=== PATIENT | male | born 1960 | race Caucasian/White ===

== ENCOUNTER 2020-03-30 10:00 | Outpatient (RCR) | payer OTHER, SELFPAY ==
--- NOTE | 2020-03-24 09:43 | STOPEVAL ---
OUTPATIENT SPEECH THERAPY INITIAL EVALUATION: Thank you for referring Carlitos Chery to [facility]. Skilled Speech Therapy is recommended in order to educate and train pt on compensatory strategies to improve overall speech intelligibility. Please review, sign, date and return this plan of care PHIL. I agree with and certify that the following plan of care is medically necessary. Referring Physician Date Attending Provider: Tara Luna, *ST Outpatient Evaluation Start: 03/22/20 11:21 Freq: Status: Active Protocol: Document 03/22/20 11:15 BECHERERT (Rec: 03/22/20 11:55 BECHERERT [id number]) Therapy Assessment Status Assessment Status Assessment Status Evaluation Outpatient Past Medical History Past Medical History Source of Past Medical History Patient Neurological History Hx Cerebrovascular Accident (CVA) Yes Endocrine History Hx Diabetes Yes: on metformin Psychosocial History Hx Depression Yes Evaluation Information Problem Diagnosis dysarthria Onset last stroke approximately 2 years ago Additional Evaluation Detail pt's family is reporting that his speech is worsening Previous Treatments Previous Treatments For This Problem ST after CVA Prior Level of Function Activity Level (Last 3 Months) Occupation disabled Hand Dominance Right Functional Cognition (Planning, Shopping Needs Some Help , Taking Medications) Cooking No Cleaning No Laundry No Shopping No Driving No Home Setting Home Type Apartment Living Situation With Relatives Support Available Hired Assistance,Local Family Support,Medical Alert System Prior Swallow Level Prior Intake Method Oral Prior Diet Regular (Level 7 Diet) Prior Liquid Consistency Thin (Level 0 Diet) Prior Cognition/Communication Prior Communication Level Mild Impairment,Dysarthria Prior Cognitive Function Able to Function Independently Comments Additional Prior Level of Function pt lives with his brother Comments Pain Assessment Timing of Pain Assessment Timing of Pain Assessment Assessment Self Report Self Report Pain Level 0 Pain Score Pain Score 0: Self Report Dysarthria Evaluation Oral-Motor Assessment Lip Structure Symmetrical Lip Protrusion Direction WNL,Range WNL,Rate WNL,Strength WNL Lip Lateralization Direction WNL,Range WNL,Rate
--- NOTE | 2020-03-30 14:46 | PCSTNOTE ---
Patient called & cancelled scheduled appointment this date due to having transportation issues and seeking HH vs OP services. ]
--- NOTE | 2020-04-27 07:39 | PCSTNOTE ---
SPEECH THERAPY DISCHARGE: Attending Provider: Tara Luna, Patient:Carlitos Chery Date of :1960 Patient has not returned for any further treatments since 03/30/2020, therefore he will be discharged at this time. Patient?s initial visit was on 03/22/2020 11:00 and he attended only 1 a total of 1 visit. POC was never initiated. Pt reported having transportation issues as the reason for not attending treatment. Thank you for referring this patient to [facility]. Please review, sign, date and return this discharge summary PHIL. I have been updated about the patient's current status and I agree with discharge from the above service at this time. Referring Physician Date
== END 2020-04-27 13:58 | disposition home or self-care (01) ==
LOC: ANHST 10:00
PROVIDERS: PCP Family Medicine; Visit Provider Family Medicine
DX: F80.1 Expressive language disorder (principal)
CPT/HCPCS: 92522

== ENCOUNTER 2024-03-14 08:56 | Emergency (ER) | payer OTHER, SELFPAY ==
[2024-03-14] VITALS (21 sets, daily range): BP systolic 132–175; BP diastolic 76–89; PULSE 57–73; RESP 12–26; TEMP 36.7; O2SAT 91–99
--- NOTE | ~2024-03-14 | CT_ITS ---
EXAMINATION: CT brain wo con DATE: 03/14/2024 10:12 INDICATION: Headache. TECHNIQUE: Computed tomography (CT) of the head was performed without intravenous contrast. The mA wa s adjusted according to patient size. Iterative reconstruction technique was employed. The dose-lengt h product was 681.00 mGy-cm. COMPARISON: Head CT 05/27/2018 FINDINGS: There is an old infarct in the right caudate nucleus. There are scattered areas of low atte nuation in the cerebral white matter. There is an old infarct in the left thalamus. There is volume l oss of right temporal lobe with ex vacuo dilatation of temporal horn of right lateral ventricle. Ther e is near complete opacification of left maxillary sinus with thickening and sclerosis of the sinus w alls, consistent with chronic sinusitis. There is mild mucosal thickening in other paranasal sinuses. The mastoid air cells are normal. The orbits are normal. IMPRESSION: 1. Old infarcts in the right caudate and left thalamus. 2. Worsened extensive nonspecific cerebral white matter disease, which likely represents chronic smal l vessel ischemic disease. 3. Chronic sinusitis. Reviewed, dictated and finalized at location A. IMPRESSION: 1. Old infarcts in the right caudate and left thalamus. 2. Worsened extensive nonspecific cerebral white matter disease, which likely r epresents chronic small vessel ischemic disease. 3. Chronic sinusitis.
--- NOTE | ~2024-03-14 | XR_ITS ---
EXAMINATION: XR chest 1V DATE: 03/14/2024 10:18 INDICATION: Chest pain. TECHNIQUE: AP view of the chest was obtained. COMPARISON: Chest radiograph dated 03/20/19 FINDINGS: The lungs remain clear with no focal airspace opacities, pulmonary edema, pleural effusion or pneumot horax. The cardiomediastinal silhouette is normal. Visualized bones and soft tissues are unremarkable . IMPRESSION: 1. No acute cardiopulmonary disease. Reviewed, dictated and finalized at location B.
--- NOTE | 2024-03-14 09:40 | ED.GENADULT ---
HPI - General Adult General Chief complaint: Unspecified Stated complaint: head pains? Time Seen by Provider: 03/14/24 09:40 Source: patient Mode of arrival: ambulatory Limitations: no limitations History of Present Illness HPI narrative: Carlitos is a 63-year-old male patient presenting to the 63-year-old male patient presenting to the emergency room today with complaints of right-sided head pain and chest pain this been coming and going over the last several weeks. Had a left-sided CVA 6 years ago any still has residual right-sided weakness. He reports he is having an aching pain to the right side of his head that comes and goes. Patient does not currently take any medications- states he had to stop taking his medications because he could not afford them and he had did choose between medications and food. Related Data Allergies Allergy/AdvReac Type Severity Reaction Status Date / Time No Known Allergies Allergy Unverified 03/14/24 09:23 Review of Systems Review of Systems: Pertinent positives per HPI. Patient denies any fever, chills, rash, headache, visual changes, dizziness, cough, runny nose, sore throat, shortness of breath, chest pain, palpitations, nausea, vomiting, diarrhea, constipation, abdominal pain, or any urinary issues. PMFSH Comments At the time of my signature, I reviewed and agree with the nursing past medical, surgical, social, and family history. There is no relevant family history pertinent to the patient complaint. Exam Narrative: General: Well-developed, well nourished, in no apparent distress Head: Normocephalic, atraumatic Eyes: Pupils equally round and reactive to light bilaterally, EOM intact, sclera and conjunctive clear, no discharge, lids normal Ears: TMs intact and clear, ear canals clear, no drainage, grossly hearing normal. Nose: Nares patent, no discharge, no inflammation, no sinus tenderness. Mouth: Oropharynx without lesions or masses, good dentition, MMM. Tongue midline, even rise and fall of uvula Neck: Supple, trachea midline, no enlargement of anterior or posterior cervical nodes, no thyroid masses or goiter palpable. Cardio: Regular rate and rhythm, s1 and s2 normal, no murmur appreciated. Resp: Clear to auscultation bilaterally anteriorly and posteriorly, no rhonchi, rales, wheezing or rubs Musculoskeletal: No deformity, non-tender to palpation, grossly normal range of motion, muscle strength strong and equal, peripheral pulse strong, no edema, no cyanosis, normal gait and station Neuro: Alert and oriented x4 with residual aphasia, residual right arm/leg weakness when compared to left arm/leg, cranial nerves I through XII intact, muscle strength 3 out of 5, sensation intact bilaterally. Course Course Emergency Course: Portions of this record may have been created with voice recognition software. Vital Signs Vital signs: Vital Signs Temperature 36.7 C 03/14/24 09:15 Pulse Rate 66 03/14/24 09:15 Respiratory Rate 20 03/14/24 09:15 Blood Pressure 175/85 H 03/14/24 09:15 Pulse Oximetry 97 03/14/24 09:15 Oxygen Delivery Room Air 03/14/24 09:15 Temperature 36.7 C 03/14/24 09:15 Pulse Rate 60 03/14/24 13:45 Respiratory Rate 21 H 03/14/24 13:45 Blood Pressure 132/76 03/14/24 10:01 Pulse Oximetry 97 03/14/24 13:45 Oxygen Delivery Room Air 03/14/24 09:15 Vital signs reviewed Medical Decision Making MDM Narrative Medical decision making narrative: At the time of visit patient is resting comfortably on the exam table. Patient appears to be nontoxic. EKG: EKG shows sinus rhythm with occasional PVCs heart rate is 62 beats per minute. No ST elevation or depression noted. 3 hour EKG completed and shows no acute changes. Labs: Cbc unremarkable, anticoagulation stays within normal limits, CMP is unremarkable other than a 208 glucose and 151 alk-phos, urinalysis shows 1+ protein, 2+ glucose, and trace ketones without sign o
--- NOTE | 2024-03-14 09:50 | ECG_ITS ---
Test Date: 2024-03-14 10:36:47 Measurements Intervals [place] Rate: 62 P: 23 GA: 176 QRS: -2 QRSD: 93 T: 79 QT: 423 QTc: 431 Interpretive Statements SINUS RHYTHM WITH OCCASIONAL SUPRAVENTRICULAR PREMATURE COMPLEXES POSSIBLE INFERIOR MYOCARDIAL INFARCTION , PROBABLY OLD BORDERLINE T WAVE ABNORMALITY- HIGH LATERAL LEADS BASELINE ARTIFACT- I, V6 ABNORMAL ECG No previous ECG available for comparison Electronically Signed On 03-14-2024 10:41:33 CDT by Uli Issa D.O.
[2024-03-14 10:44] LABS: Basophils Percent Auto 0.6 % (0.2-1.2); Eosinophils Absolute Auto 0.2 K/mm3 (0-0.3); Eosinophils Percent Auto 2.3 % (0-4.4); Hematocrit 46.1 % (42.0-52.0); Hemoglobin 14.9 g/dL (14.0-18.0); Immature Granulocyte Absolute 0.04 K/mm3 (0.00-0.031); Immature Granulocyte Percent A 0.6 % (0-0.5); Lymphocytes Absolute Auto 1.79 K/mm3 (0.9-3.2); Lymphocytes Percent Auto 25.9 % (18.3-44.2); Mean Corpuscular HGB Conc 32.3 g/dl (32-36); Mean Corpuscular Hemoglobin 28.7 pg (26-34); Mean Corpuscular Volume 88.7 fl (80-100); Mean Platelet Volume 10.4 fl (7.4-10.4); Monocytes Absolute Auto 0.6 K/mm3 (0.1-0.6); Monocytes Percent Auto 8.4 % (2.6-8.5); Neutrophils Absolute Auto 4.3 K/mm3 (1.3-6.7); Neutrophils Percent Auto 62.2 % (45.5-73.1); Platelet Count Result 222 k/mm3 (150-375); Red Cell Distribution Width 13.4 % (11.5-14.5); White Blood Count 6.9 K/mm3 (4.5-10.0)
[2024-03-14 10:54] LABS: INR 0.9
[2024-03-14 10:55] LABS: Partial Thromboplastin Time 30.9 Seconds (22.3-36.8)
[2024-03-14 10:56] LABS: Alanine Aminotransferase 10 U/L (6-50); Albumin Level 4.2 g/dL (3.5-5.1); Alkaline Phosphatase 151 U/L (38-126); Anion Gap 7 mmol/L (4-12); Aspartate Amino Transferase 17 U/L (17-59); Bilirubin,Total 0.6 mg/dL (0.2-1.3); Blood Urea Nitrogen 17 mg/dL (9-20); Carbon Dioxide 27 mmol/L (22-30); Chloride 103 mmol/L (98-107); Estimated CRCL calculation 56 ml/min; Estimated Glomerular Filt Rate > 60; Glucose 208 mg/dL (65-110); Potassium 4.2 mmol/L (3.4-5.0); Sodium 137 mmol/L (137-145)
[2024-03-14 11:07] LABS: NT Pro B Type Natriuretic Pept 67 pg/mL (19.9-100); Troponin I < 0.012 ng/mL (0.000-0.034)
--- NOTE | 2024-03-14 11:19 | PCCCNOTE ---
Requested pt be seen as he quit taking his medication and there was concern he may not be able to afford it. Met with pt and his twin brother. They currently live together in their home that they rent and have to be out of this coming weekend as it is being renovated. They do have an application in for a place in [place] but the brother is hoping to move in there alone. Pt states he is able to afford his medication he just doesn't take it because he has to take it with food and it's too much trouble. Brother states he can no longer care for the pt and is interested in an assisted living situation. 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 Call placed there and the director of undergraduate admissions is out until Sunday. [employer] website has a pricelist of $148/night which was given to the pt. He has less than $1000 coming in each month between SSI and IPA. They were given a list of assisted living facilities in the area with the facilities that accept IPA circled. They are aware that he will most likely not be able to be admitted from here as they have a process they have to follow to admit. Provider informed of above and is uncertain if pt will require admission to the hospital or not.
[2024-03-14 11:55] LABS: Appearance Urine Clear (Clear); Bacteria Urine None Seen /hpf; Bilirubin Urine Negative (Negative); Blood Urine Negative (Negative); Color Urine Yellow (Yellow); Glucose Urine UA 2+ mg/dL (Negative); Ketones Urine Trace mg/dL (Negative); Leukocyte Esterase Ur Negative LEU/UL (Negative); Nitrate Urine Negative (Negative); Non Pathogenic Casts 0-2; Protein Urine 1+ mg/dL (Negative); RBC Urine 0-2 /hpf (0-2); Specific Grav Ur 1.023 (1.001-1.035); Squamous Epithelial Cell Urine None Seen /hpf (Few); Urobilinogen Urine 0.2 mg/dL (<2.0); WBC Urine 0-5 /hpf (0-3); pH Urine 5.5 (5.0-9.0)
[2024-03-14 12:05] LABS: Add Urine Microscopic? YES
--- NOTE | 2024-03-14 12:42 | ECG_ITS ---
Test Date: 2024-03-14 13:03:26 Measurements Intervals [place] Rate: 57 P: 22 MT: 187 QRS: 33 QRSD: 98 T: -37 QT: 430 QTc: 419 Interpretive Statements SINUS BRADYCARDIA ST-T WAVE ABNORMALITY IN INFERIOR LEADS- CONSIDER ISCHEMIA ABNORMAL ECG Compared to ECG 03/14/2024 10:36:47 ST-T WAVE ABNORMALITY NOW PRESENT Electronically Signed On 03-14-2024 13:17:36 CDT by Uli Issa D.O.
[2024-03-14 13:55] LABS: Troponin I < 0.012 ng/mL (0.000-0.034)
== END 2024-03-14 14:44 | disposition home or self-care (01) ==
PROVIDERS: Emergency Provider Nurse Practitioner Family; PCP Family Medicine
DX: G44.89 Other headache syndrome (principal); R07.89 Other chest pain; J32.9 Chronic sinusitis, unspecified; R00.1 Bradycardia, unspecified; R94.31 Abnormal electrocardiogram [ECG] [EKG]
CPT/HCPCS: 36415; 70450; 71045; 80053; 81001; 83880; 84484; 85025; 85610; 85730; 93005; 99284